=== PATIENT | male | born 1940 | race Two or more races ===

== ENCOUNTER 2019-02-07 16:07 | Inpatient (IN) | payer MEDICARE, MEDICAID ==
[~2019-02-07] VITALS: Ht 167.6 cm; Wt 65.3 kg
[2019-02-07 19:30] VITALS: BP 104/65
--- NOTE | 2019-02-07 19:30 | NUR ---
GPS-ADMISSION NOTES: ADMITTED A 78-YR OLD MALE, DIRECT ADMIT FROM [facility]. ADMITTED ON 5150 FOR GD. PER HOLD, PATIENT IS LIVING IN HIS CAR, DEFECATING AND URINATING ON SELF, TALKS TO SELF, HAS VERY POOR HYGIENE, LIVES IN CAR INFESTED WITH FECES AND FLIES. PT. HAVEN'T BATHED FOR 6 MONTHS. UPON FACE TO FACE ASSESSMENT, PATIENT IS ALERT, ORIENTED X2, CALM, COOPERATIVE WITH CARE, QUIET, INTERACTS WHEN ENGAGED. DENIES SI/HI OR HALLUCINATIONS AT THIS TIME. IN NO APPARENT DISTRESS NOTED. AMBULATES INDEPENDENTLY. NO S/SX OF PAIN OR DISCOMFORT NOTED. BELONGINGS WERE INVENTORIED AND CHECKED FOR CONTRABAND. DR. MIMS NOTIFIED OF PT'S ADMISSION WITH STANDING ORDERS AND UNDER THE MEDICAL CARE OF SUKUMAR HERRERA, NOTIFIED OF PT'S ADMISSION AND MEDS TO RECONCILE. SKIN ASSESSMENT DONE. NO FAMILY TO NOTIFY. BED LOCKED AND PLACED ON LOWEST POSITION TO MAINTAIN SAFETY. FALL PRECAUTIONS IMPLEMENTED. WILL CONTINUE TO MONITOR Q15 MIN ROUNDS FOR SAFETY AND BEHAVIOR.
[2019-02-07] MEDS ORDERED: ACETAMINOPHEN 325 MG TABLET PO PRN (20:00)
[2019-02-07] MEDS ORDERED: LORAZEPAM 0.5 MG TABLET PO PRN (20:00)
[2019-02-07] MEDS ORDERED: TEMAZEPAM 7.5 MG CAPSULE PO PRN (20:00)
[2019-02-07] MEDS ORDERED: MAG HYDROX/AL HYDROX/SIMETH 30 ML UDC PO PRN (20:00)
[2019-02-07] MEDS ORDERED: MAGNESIUM HYDROXIDE 30 ML UDC PO PRN (20:00)
[2019-02-07] MEDS ORDERED: CIPRO (20:18)
[2019-02-07] MEDS ORDERED: METRONIDAZOLE (20:18)
[2019-02-07 20:20] VITALS: BP 104/65
[2019-02-07] MEDS ORDERED: Z GUARD REMEDY 4 OZ OINT TP PRN (23:30)
[2019-02-08 08:00] VITALS: BP 117/66
[2019-02-08 08:51] LABS: BASOPHILS % (AUTO) 0.1 % (0.0-2.0); EOSINOPHILS % (AUTO) 2.5 % (0.0-6.0); HEMATOCRIT 38 % (39-51); HEMOGLOBIN 12.8 g/dL (13.5-17.5); LYMPHOCYTES # (AUTO) 1.8 /CMM (0.8-4.8); LYMPHOCYTES % (AUTO) 27.4 % (20.0-44.0); MEAN CORPUSCULAR HGB CONC 34 g/dl (31.0-36.0); MEAN CORPUSCULAR VOLUME 89 fL (80-96); MONOCYTES # (AUTO) 0.5 /CMM (0.1-1.30); MONOCYTES % (AUTO) 8.3 % (2.0-12.0); NEUTROPHILS # (AUTO) 3.9 /CMM (1.8-8.9); NEUTROPHILS % (AUTO) 61.7 % (43.0-81.0); PLATELET COUNT (AUTO) 287 /CMM (150-450); RED BLOOD CELL COUNT(AUTO) 4.25 MIL/uL (4.5-6.0); WHITE BLOOD COUNT (AUTO) 6.4 K/uL (4.3-11.0)
[2019-02-08 09:00] LABS: CHOLESTEROL 96 mg/dL (<200); HDL CHOLESTEROL 27 mg/dL (40-60); LDL 60 mg/dL (0-99); TRIGLYCERIDES 103 mg/dL (30-150)
[2019-02-08 09:14] LABS: ALANINE AMINOTRANSFERASE 21 U/L (12-78); ALBUMIN 2.5 g/dL (3.4-5.0); ALKALINE PHOSPHATASE 38 U/L (46-116); ASPARTATE AMINOTRANSFERASE 18 U/L (15-37); BILIRUBIN,TOTAL 0.3 mg/dL (0.2-1.0); CALCIUM, SERUM 8.2 mg/dL (8.5-10.1); CARBON DIOXIDE 25 mmol/L (21-32); CHLORIDE 109 mmol/L (98-107); CREATININE 0.7 mg/dL (0.6-1.3); GLUCOSE 101 mg/dL (74-106); POTASSIUM 3.7 mmol/L (3.5-5.1); SODIUM SERUM 143 mmol/L (136-145); TOTAL PROTEIN, SERUM 5.2 g/dL (6.4-8.2); UREA NITROGEN, BLOOD 10 mg/dL (7-18)
[2019-02-08 16:00] VITALS: BP 104/62
[2019-02-08 20:12] VITALS: BP 110/68
--- NOTE | 2019-02-08 22:25 | NUR ---
Patient claims that he is on Flagyl " for bacteria in my stomach".patient can't remember the dosage ,frequency and start date of taking the Flagyl.Patient stated " my BM earlier is a formed stool,I don't have pain and I don't have diarrhea. SUKUMAR Concepcion was notified and ordered to collect stool specimen once patient has BM.
[2019-02-09 08:00] VITALS: BP 105/69
--- NOTE | 2019-02-09 11:40 | NUR ---
WOUND CARE CONSULT: PT REFUSED SKIN ASSESSMENT. PT IS AMBULATORY AND STATES IS CONTINENT AND THAT HE PREVIOUSLY HAD DIARRHEA. WILL SEE PT PT CONDITION PERMITS. Z GUARD IS ORDERED FOR PT.
--- NOTE | 2019-02-09 14:50 | NUR ---
SW received a call from Megan Gifford, [facility] psych mobile crisis response team renal social worker [phone] stating that pt has been homeless for many months and is under their "radar" and also stated that the [facility] crisis mobile team has been attempting to help pt with housing. Megan stated that she would fax SW a form to fill out as it needs to be filled out by hospital SW
--- NOTE | 2019-02-09 14:54 | NUR ---
Group Note: SW encouraged the pt to participate in group therapy and he stated that he would make an attempt. Pt was present in the group for about 10 minutes and refused to talk. Pt appeared to be alert and oriented. Pt presented with an agitated affect and appeared to lack insight into his mental health/admission.
--- NOTE | 2019-02-09 15:15 | NUR ---
INITIAL DISCHARGE PLAN: Patient wishes to be discharged back to his car. Pt states that he is not homeless as he has a place to sleep; his car. LILLIE received a call from [facility] psych mobile crisis response team social services designee [phone] stating that pt has been homeless for many months and is under their "radar" and also stated that the [facility] crisis mobile team has been attempting to help pt with housing. Megan stated that she would fax a form to fill out as it needs to be filled out by [facility]. LILLIE will help form a safe and proper discharge in collaboration with and MÓNICA.
[2019-02-09 16:00] VITALS: BP 105/61
[2019-02-09 20:02] VITALS: BP 103/63
[2019-02-10 08:00] VITALS: BP 102/67
--- NOTE | 2019-02-10 09:48 | NUR ---
WOUND CARE CONSULT: PT PRESENTS WITH INTACT SKIN AND SMALL DRY SCABS TO ARMS AND LEGS, PRESENT ON ADMISSION. PT REQUESTS Z GUARD FOR PERIANAL PROTECTION WHICH IS ORDERED PRN. DISCUSSED WITH NURSING STAFF. PT IS CONTINENT AND AMBULATORY AT THIS TIME. WILL SEE PRN. Addendum: 02/10/19 at 0950 by CAMPBELL ARAUJO WNDNU Amended: Links added.
--- NOTE | 2019-02-10 11:00 | NUR ---
LILLIE contacted Megan Gifford [facility] psych mobile crisis response team social security benefits interviewer [phone] Triplett has an anticipated discharge date for Saturday02/16/19 and also informed her pt has refused any placement and stated that he wants to return to his car. Megan stated that pt is currently not linked to any community services or housing services due to him refusing assistance. Megan also mentioned that pts car is 100% none livable. Megan stated pts care is parked in front of [facility] in [facility].
[2019-02-10 16:00] VITALS: BP 126/70
--- NOTE | 2019-02-10 16:18 | NUR ---
GROUP NOTE: SW prompted pt to participate in group therapy. Pt refused and stated he was on the phone getting his things organized and that was more important than group.
[2019-02-10] MEDS: risperiDONE 1 MG TABLET PO SCH (17:00)
[2019-02-10 19:56] VITALS: BP 94/62
[2019-02-11 08:00] VITALS: BP 124/77
[2019-02-11] MEDS: risperiDONE 1 MG TABLET PO SCH ×2 (09:00→17:19)
--- NOTE | 2019-02-11 10:03 | NUR ---
GPS/RN-NOTES REFUSED RISPERDAL 1MG P.O MEDICATION DESPITE EXPLANATION RISK AND BENEFITS. STATED" I DON'T NEED ANY MEDICATIONS AT ALL". OFFERED X3.STILL REFUSED.
--- NOTE | 2019-02-11 14:21 | NUR ---
GPS/RN-NOTES DR. MIMS SEEN THE PATIENT WITH VERBAL ORDER OF RISPERDAL 1MG P.O ONE DOSE NOW. NOTED AND CARRIED OUT.
[2019-02-11] MEDS ORDERED: risperiDONE 1 MG TABLET PO ONE (14:30)
--- NOTE | 2019-02-11 15:39 | NUR ---
Group Note: SW encouraged the pt to participate in group therapy and he stated that he is currently on the phone and would rather be on the phone than participate in group.
[2019-02-11 16:00] VITALS: BP 100/61
[2019-02-11 20:05] VITALS: BP 80/47
[2019-02-11 20:15] VITALS: BP 94/54
--- NOTE | 2019-02-11 20:45 | NUR ---
RECHECKED BP AT 2014 94/59, HR 85, DENIES ANY DISCOMFORT, COMFORTABLE, NO APPARENT DISTRESS NOTED.
--- NOTE | 2019-02-11 22:00 | NUR ---
OFFERED SLEEPING PILL, PATIENT STATED, " OH NO, THANK YOU." OFFERED X2, STILL REFUSED.
[2019-02-12 08:00] VITALS: BP 100/64
[2019-02-12] MEDS: risperiDONE 1 MG TABLET PO SCH ×3 (08:24→17:00)
--- NOTE | 2019-02-12 15:26 | NUR ---
On 02/12/19 around 2:20PM, DESHAUN Roberts received a phone call from Ms. Song ([phone]), patients advocate. She stated that she was the advocate for patient, Rajendra Jackson. Ms. Song questioned Alejandra about the patients hearing that took place earlier that morning. Alejandra was unable to provide her with the Hearing Officers last name due to the writing on the Hearing Certification. Alejandra handed the phone to me because I conducted the hearing for the patient, Shanta Beebe. I began by informing her the patient advocate, Constantino, gave the patient his rights this morning between 9-9:30am. Constantino informed both Lee Ann Caldwell and myself that the patient stated that he wanted the advocate to leave and that he did not want to talk to him when his rights were being presented. Ms. Song cut me off and stated that I was lying in an aggressive manner multiple times and stated that the patient never had his rights presented to him. Ms. Song then asked for my first and last name. She then asked who the Independent Living Instructor and the Patient Advocate and wanted their first and last names. I stated that the last name was not written clearly and that I did not feel comfortable making a guess. Ms. Song stated that the phone conversation was being recorded and that by Federal Law, the Independent Living Instructor and Patient Advocate first and last name must be provided. She then made a comment regarding whether or not I had the capability to read. I stated that I can read but that I cannot control whether or not the handwriting is legible. I stated that she can call and find out on her own. Ms. Song then stated that she wanted me to call back within 45 minutes with the names of the Independent Living Instructor and Patient Advocate. I asked her for her name and phone number and she refused to give me her first name. She stated that her name was Ms. Song in a firm manner and would not provide her first name. She then asked to be transferred so that she can speak to the patient. Around 3pm, I called her back and stated that I had the names for her because Alejandra MEADE did not want to speak to her. Ms. Song stated that she knew she was on speaker and asked who was in the room. I told her that it was just me and the pts LILLIELee Ann V. She asked for Anam last name and that is when Lee Ann took the call. Ms. Song asked for her last name once again when Lee Ann stated that she did not need to provide it to her. Ms. Song stated once again that the phone call is being recorded and Lee Ann stated that she did not believe that was legal. Ms. Song then stated, I know how vicious and manipulative you social workers and [facility] can be. Lee Ann ended the call once that verbally aggressive remark was made.
--- NOTE | 2019-02-12 16:00 | NUR ---
Group Note: SW prompted pt to participate in group therapy and he stated that he is currently on the phone and would rather be on the phone than participate in group.
--- NOTE | 2019-02-12 16:15 | NUR ---
SW approached pt and spoke with him regarding his PC hearing and him refusing to speak to the patient advocate. Pt refused to acknowledge that the pt advocate spoke to him. SW informed him that the pt advocate (Constantino) was in his room about 9:00am and that he read him his rights and he told him to leave his room. Pt responded with, "he must have been ugly then if I kicked him out." Pt then refused to continue speaking to SW.
--- NOTE | 2019-02-12 18:16 | NUR ---
RN GPS NOTES PT AWAKE, SITTING IN BED, CALM AT THIS TIME, DENIES PAIN, NOT IN DISTRESS, PT REFUSED RISPERDAL TODAY, MD AWARE, SAFETY PRECAUTIONS OBSERVED, ROUTINE ROUNDING DONE, NEEDS ATTENDED.
[2019-02-12 20:00] VITALS: BP 100/62
[2019-02-13 08:00] VITALS: BP 97/61
[2019-02-13 08:30] VITALS: BP 97/61
[2019-02-13] MEDS: risperiDONE 1 MG TABLET PO SCH ×2 (08:48→16:43)
--- NOTE | 2019-02-13 09:44 | NUR ---
PT REFUSED BREAKFAST THIS AM AND REFUSES MEDICATIONS WELL PT ABLE TO DO ADL'S PT ALERT AND OREITED WILL CONTINUE TO MONITOR PATIENT MOOD AND BEHAVIOR
--- NOTE | 2019-02-13 14:26 | NUR ---
LILLIE contacted [facility] psych mobile crisis response team social services analyst [phone] who stated Megan is off today but is able to assist SW with pts discharge. Marcell stated that currently there isn't a discharge plane for pt and is aware that pt is not receptive to assistance. Marcell stated that pt is currently not connected to any outside community services and stated that if pt is refusing placement then there is nothing [facility] can do. LILLIE explained that on the day of discharge she will have pt sign a Homeless waiver and provide pt with homeless resources and provide pt with a TAP card. Marcell agreed and requested LILLIE call to inform the crisis mobile team that pt has been discharged. LILLIE agreed and will call on Saturday02/16/19 to inform of pts discharge back to his care which is located in [facility] in front of a storage unit on [facility].
[2019-02-13 16:00] VITALS: BP 132/70
--- NOTE | 2019-02-13 16:00 | NUR ---
Group Note: SW encouraged the pt to participate in group therapy and he stated that he is currently preoccupied with his thoughts and did not wish to participate.
[2019-02-13 17:00] VITALS: BP 132/70
[2019-02-13 20:00] VITALS: BP 110/62
[2019-02-14] MEDS: risperiDONE 1 MG TABLET PO SCH ×3 (08:30→16:46)
[2019-02-14 16:00] VITALS: BP 146/62
--- NOTE | 2019-02-14 18:07 | NUR ---
GPS/RN PATIENT REFUSED RISPERDAL PO BID MEDICATION. PER PATIENT TOLD DR HORTON HE NEEDS FLAGYL SECONDARY TO BACTERIAL C DIFF INFECTION. DR HORTON ORDERED C DIFF STOOL BUT PATIENT DIDN'T MATCH THE CRITERIA FOR STOOL TO BE COLLECTED FOR C DIFF. NOTED WITH BM X 1 ONLY, NOTED LIQUID WITH FORMED STOOL, NO FOUL ODOR AT THIS TIME. THEREFORE, NOT ABLE TO COLLECT THE STOOL AND EXPLAINED TO PATIENT.
[2019-02-14 20:00] VITALS: BP 111/60
--- NOTE | 2019-02-15 06:30 | NUR ---
GPS RN NOTES: COLLECT STOOL FOR C- DIFF , SEND OUT TO THE LAB , CHARGE NURSE MADE AWARE , WILL CONTINUITY OF CARE .
[2019-02-15 08:00] VITALS: BP 100/65
[2019-02-15] MEDS: risperiDONE 1 MG TABLET PO SCH ×2 (09:00→17:41)
--- NOTE | 2019-02-15 09:00 | NUR ---
ms rn patient refused to take his po meds, getting agitated and threatening staff.
--- NOTE | 2019-02-15 10:11 | NUR ---
RN -CO: PATIENT SCATTERED HIS STOOL OVER THE FLOOR, HE IAS AMBULATORY , ALERT AND ORIENTEDX4. PATIENT STATED " I DID IT PURPOSELY TO GET YOUR ATTENTION BECAUSE I NEED ANTIBIOTICS." PATIENT SMEARED HIS STOOLS TO BED RAILS AND MATTRESS. PATIENT REFUSED TO SHOWER AND BE CLEANED. HE WAS YELLING AND SCREAMING AT THE STAFF. WHEN ASSISTED TO BE CLEAN.
[2019-02-15] MEDS ORDERED: OLANZAPINE 10 MG VIAL IM ONE (11:00)
[2019-02-15] MEDS ORDERED: LORAZEPAM INJ 2 MG/ML VIAL IM ONE (11:00)
[2019-02-15 16:00] VITALS: BP 112/68
[2019-02-15] MEDS: VANCOMYCIN HCL 125 MG/2.5 ML ORAL.SUSP PO SCH ×2 (17:41→23:27)
[2019-02-15 21:51] VITALS: BP 96/61
--- NOTE | 2019-02-15 23:29 | NUR ---
GPS RN NOTES: PT.SPIT OUT VANCOMYCIN 250 MG , PT. BEHAVIOR VERY UNCOOPERTIVE ,ARRGUING WITH STAFF YELLING, SCREAMING, I DONT NEED THIS MEDS , ENCOURAGED EXPLAINED RISKS AND BENEFITS STILL UNCOOPERTIVE TAKING MEDS, CHARGE NURSE MADE AWARE.
[2019-02-16] MEDS: VANCOMYCIN HCL 125 MG/2.5 ML ORAL.SUSP PO SCH ×4 (06:00→23:05)
--- NOTE | 2019-02-16 06:20 | NUR ---
GPS RN NOTES: PT.REFUSED VANCOMYCIN 250 MG , PT. BEHAVIOR VERY UNCOOPERTIVE ,ARRGUING WITH STAFF YELLING, SCREAMING,PER PT. I DONT WANT TAKING ANY MEDS , ENCOURAGED EXPLAINED RISKS AND BENEFITS, STILL UNCOOPERTIVE TO TAKING MEDS, CHARGE NURSE MADE AWARE.
[2019-02-16] MEDS: risperiDONE 1 MG TABLET PO SCH ×2 (09:00→17:00)
[2019-02-16 09:24] VITALS: BP 106/64
[2019-02-16 16:00] VITALS: BP 121/76
[2019-02-16] MEDS: ENSURE ENLIVE CHOC 237 ML CAN PO SCH (17:20)
[2019-02-16 20:55] VITALS: BP 103/67
[2019-02-17] MEDS: VANCOMYCIN HCL 125 MG/2.5 ML ORAL.SUSP PO SCH ×3 (06:14→17:51)
--- NOTE | 2019-02-17 06:17 | NUR ---
MS MEADE NOTES: UPON ADMINISTERING VANCOCIN, PT REQUESTING TO TAKE IT AT 0700. "IT'S TOO EARLY." Addendum: 02/17/19 at 0711 by LAINA CYR RN PT SUCCESSFULLY TOOK VANCOCIN.
[2019-02-17 08:00] VITALS: BP 94/58
[2019-02-17] MEDS: risperiDONE 1 MG TABLET PO SCH ×2 (09:00→10:30)
[2019-02-17] MEDS: ENSURE ENLIVE CHOC 237 ML CAN PO SCH ×2 (10:50→17:48)
[2019-02-17 16:00] VITALS: BP 99/67
--- NOTE | 2019-02-17 16:45 | NUR ---
TAKING ANTIBIOTIC ONLY.REFUSED RISPERDAL IN AM,DR. MIMS AWARE.
[2019-02-17] MEDS ORDERED: BENZTROPINE MESYLATE (2MG/2ML) 2 MG/2 ML AMPUL IM PRN (17:30)
[2019-02-17] MEDS ORDERED: HALOPERIDOL LACTATE INJ 5 MG/ML VIAL IM PRN (17:30)
[2019-02-17] MEDS: HALOPERIDOL 5 MG TABLET PO SCH (17:49)
[2019-02-17] MEDS: BENZTROPINE MESYLATE (1 MG) 1 MG TABLET PO SCH (17:50)
--- NOTE | 2019-02-17 18:30 | NUR ---
STARTED ON HALDOL.
[2019-02-17 20:00] VITALS: BP 96/52
[2019-02-18] MEDS: VANCOMYCIN HCL 125 MG/2.5 ML ORAL.SUSP PO SCH ×5 (00:16→23:25)
[2019-02-18 08:00] VITALS: BP 138/68
[2019-02-18] MEDS: HALOPERIDOL 5 MG TABLET PO SCH ×2 (08:39→16:37)
[2019-02-18] MEDS: BENZTROPINE MESYLATE (1 MG) 1 MG TABLET PO SCH ×2 (08:40→16:25)
[2019-02-18] MEDS: ENSURE ENLIVE CHOC 237 ML CAN PO SCH ×2 (08:40→16:26)
--- NOTE | 2019-02-18 10:23 | NUR ---
WOUND CARE CONSULT: PT PRESENTS WITH BLANCHABLE REDNESS TO SACRUM AND BUTTOCKS. PT HAS HAD DIARRHEA AT TIMES PER NURSING AND PT REPORT. RECOMMENDATIONS MADE FOR SKIN PROTECTION AND DISCUSSED WITH NURSING STAFF. WILL SEE PRN. CURRENT JORDAN SCORE IS 18. Addendum: 02/18/19 at 1024 by CAMPBELL ARAUJO WNDNU Amended: Links added.
--- NOTE | 2019-02-18 15:21 | NUR ---
GROUP NOTE: SW prompted pt to participate in group therapy, pt refused to attend asking SW to leave.
[2019-02-18 16:00] VITALS: BP 100/65
[2019-02-18 20:16] VITALS: BP 105/63
[2019-02-19] MEDS: VANCOMYCIN HCL 125 MG/2.5 ML ORAL.SUSP PO SCH (06:07)
[2019-02-19] MEDS: ENSURE ENLIVE CHOC 237 ML CAN PO SCH (08:22)
[2019-02-19] MEDS: BENZTROPINE MESYLATE (1 MG) 1 MG TABLET PO SCH (08:22)
[2019-02-19] MEDS: HALOPERIDOL 5 MG TABLET PO SCH (08:22)
[2019-02-19 08:23] VITALS: BP 92/54
--- NOTE | 2019-02-19 09:37 | NUR ---
DR. MIMS GAVE AN ORDER TO D/C HOLD AND D/C TODAY AND TO FOLLOW UP WITH PSYCH AND MEDICAL DOCTORS.
--- NOTE | 2019-02-19 11:30 | NUR ---
LILLIE contacted [place] [facility] mobile crisis response team social science analyst [phone] to inform her pt is beong discharged on this present day back to his vehicle. [place] took down information and sttaed thank you. n Addendum: 02/19/19 at 1132 by MATILDE MOREIRA ERROR NOTE
--- NOTE | 2019-02-19 11:32 | NUR ---
LILLIE contacted [place] [facility] psych mobile crisis response team social security assessor [phone] to inform her pt is being discharged on this present day back to his vehicle. [place] took down information and stated thank you.
--- NOTE | 2019-02-19 11:40 | NUR ---
DISCHARGE NOTE: Patient was discharged at 11:40am and choose to leave without accepting placement. Pt has refused discharge to a homeless snf and has refused discharge to a assisted home or board and care. Pt also refused transportation arrangements via public transportation. This hospital provided the pt with a TAP card to pay for a bus. Pts mood was agitated refusing to leave with flat affect. Pt denied visual/auditory hallucinations and denied suicidal/homicidal ideation. LILLIE referred pt to [facility] [id number] [facility] [address] . Pt was uncooperative and was provided with a homeless resource packet which includes a list of [facility] Mental Health Directly Operated Providers, [facility] Homeless Resource Directory, urgent care clinics, substance abuse walk in clinics, transitional housing resources, hot meal services, and showers. Pt refused to sign the homeless waiver stating he was not going to sign as he was not going to leave until he attended his WRIT Hearing. Pt agreed to discharge after explained the purpose of a WRIT HEARING. Pt was paranoid and stating he wanted to attend his hearing to "clear his name." The multidisciplinary exit care form was done, printed, signed, and given to the patient. A copy of the resources given to patient as well as the homeless waiver form was placed in patients chart. Pt. was alert and oriented x4 at discharge.
--- NOTE | 2019-02-19 11:54 | NUR ---
GPS DISCHARGE NOTE: PT DISCHARGE TO HIS CAR REFUSED PLACEMENT,PT LEFT VIA PUBLIC TRANSPORTATION,TAP CART [place] PROVIDED.PT IN STABLE CONDITION, NO S/S DISTRESS NOTED,VSS. FOLLOW UP APPT WAS EXPLAIN GIVEN TO PT .PT WAS GIVEN AND EXPLAIN PRESCRIPTION . PT WAS SEEN BY Phil BATEMAN , DR FELICITA Mccabe ORDER TO DC HOLD DC PT. EXIT CARE DONE, PRINTED GIVEN TO PT . PT REFUSED SKIN ASSESSMENT , REFUSED TO SIGN PAPERS. ALL BELONGINGS AND VALUABLES GIVEN TO PT PT SIGN BELONGINGS LIST.
== END 2019-02-19 11:40 | disposition home or self-care (01) | DRG 885 ==
LOC: GPS 19:20
PROVIDERS: ADMIT Psychiatry & Neurology Psychiatry; ATTEND Nurse Practitioner Acute Care
DX: F29 Unspecified psychosis not due to a substance or known physiological condition (principal); E44.0 Moderate protein-calorie malnutrition; A04.72 Enterocolitis due to Clostridium difficile, not specified as recurrent; F39 Unspecified mood [affective] disorder; D63.8 Anemia in other chronic diseases classified elsewhere; E78.00 Pure hypercholesterolemia, unspecified; E88.09 Other disorders of plasma-protein metabolism, not elsewhere classified; Z68.23 Body mass index [BMI] 23.0-23.9, adult; Z73.6 Limitation of activities due to disability
CPT/HCPCS: 36415; 80053-TC; 80061-TC; 85025-TC; 87081-TC; J2060; J3490